=== PATIENT | female | born 1995 | race Hispanic/Latino ===

== ENCOUNTER → 2023-10-31 16:17 | Outpatient (REF) | payer OTHER, SELFPAY | LOC: RAD 16:17 | PROVIDERS: ATTENDING PHYSICIAN Nurse Practitioner Family | DX: M24.819 Other specific joint derangements of unspecified shoulder, not elsewhere classified (principal) | CPT/HCPCS: 73030 ==

== ENCOUNTER → 2023-12-11 07:50 | Outpatient (REF) | payer OTHER, SELFPAY | LOC: HWRAD 07:50 | PROVIDERS: ATTENDING PHYSICIAN Obstetrics & Gynecology | DX: R10.2 Pelvic and perineal pain (principal) | CPT/HCPCS: 76830; 76856 ==

== ENCOUNTER → 2024-06-20 09:29 | Outpatient (REF) | payer OTHER, SELFPAY | LOC: RAD 09:29 | PROVIDERS: ATTENDING PHYSICIAN Obstetrics & Gynecology; FAMILY PHYSICIAN Nurse Practitioner Family | DX: N83.291 Other ovarian cyst, right side (principal) | CPT/HCPCS: 76830; 76856 ==